=== PATIENT | male | born 1960 | race Caucasian/White ===

== ENCOUNTER 2024-01-30 13:44 | Emergency (ER) | payer OTHER ==
[~2024-01-30] VITALS: Ht 172.7 cm; Wt 90.9 kg
[~2024-01-30 13:44] MED LIST: ASPI-825 PO; LORA10TA7 PO; METF-446 PO; PIOG30TA10 PO; RISP1TAB48 PO; SIMV-46 PO; TRAZ-184 PO
[2024-01-30 13:50] VITALS: TEMP 98.6
[2024-01-30 15:45] VITALS: BP 112/75; PULSE 79; RESP 17
[2024-01-30] MEDS: TraMADol HCL 50 MG TABLET PO ONE (16:16)
[2024-01-30] MEDS: KETOROLAC TROMETHAMINE 30 MG/ML VIAL IM ONE (16:16)
[2024-01-30] MEDS ORDERED: TRAM50TA5 PO (16:22)
== END 2024-01-30 16:45 | disposition home or self-care (01) ==
LOC: EMS 13:44
DX: S90.31XA Contusion of right foot, initial encounter (principal); E11.9 Type 2 diabetes mellitus without complications; I10 Essential (primary) hypertension; X58.XXXA Exposure to other specified factors, initial encounter; Y93.89 Activity, other specified; Y92.89 Other specified places as the place of occurrence of the external cause; Y99.8 Other external cause status
CPT/HCPCS: 99283; 73630; 96372; J1885